=== PATIENT | female | born 1960 | race African-American/Black ===

== ENCOUNTER 2025-05-19 22:21 | Emergency (ER) | payer MEDICARE ==
[~2025-05-19] VITALS: Ht 170.2 cm; Wt 105.0 kg
[~2025-05-19 22:21] MED LIST: ALBU05; ALBUTEROL PO; FLUT1DIS3 IH; LEVO500T2 PO; METF-414 PO; MONT-46 PO; P20 PO; PROAIR; TIOT18CA3 IH
[2025-05-19] MEDS: IPRATROPIUM BROMIDE (0.02%) 0.5MG/2.5ML NEB HHN STA (23:01)
[2025-05-19 23:02] VITALS: PULSE 64; RESP 20; O2SAT 100
[2025-05-19] MEDS: ALBUTEROL (0.083%) 2.5MG/3ML NEB HHN STA (23:02)
[2025-05-20] MEDS: HYDRALAZINE 20MG/ML VIAL IV NR (00:02)
[2025-05-20 00:15] LABS: CHLORIDE 105 mEq/L (98-107); POTASSIUM 3.7 mEq/L (3.5-5.1); SODIUM 141 mEq/L (136-145)
[2025-05-20 00:16] LABS: CALCIUM 9.4 mg/dL (8.7-10.4); CARBON DIOXIDE 27 mEq/L (21-32)
[2025-05-20 00:19] LABS: PARTIAL THROMBOPLASTIN TIME 21.4 sec (23.4-31.0)
[2025-05-20 00:21] LABS: CREATININE 0.8 mg/dL (0.6-1.0); ETHANOL BLOOD < 10 mg/dL (<10); GLUCOSE 190 mg/dL (70-105); UREA NITROGEN BLOOD 15 mg/dL (9-23)
[2025-05-20 00:38] LABS: TROPONIN I HIGH SENSITIVITY < 4 ng/L (3.0-34)
[2025-05-20] MEDS: ACETAMINOPHEN 325MG TABLET PO ONE (01:14)
[2025-05-20] MEDS: ACETAMINOPHEN 325MG TABLET PO NR (01:23)
[2025-05-20 01:40] LABS: HEMATOCRIT. 39.3 % (36.0-48.0); MEAN CORPUSCULAR HEMOGLOBIN 30.9 pg (28.0-32.0); MEAN CORPUSCULAR HGB CONC 33.2 g/dL (31.0-37.0); MEAN CORPUSCULAR VOLUME 93.2 fL (81.0-99.0); MEAN PLATELET VOLUME 8.6 fl (7.4-10.4); PLATELET 204 x1000/uL (130-400); RED BLOOD CELL COUNT 4.21 mill/uL (4.2-5.4); RED CELL DISTRIBUTION WIDTH 13.2 % (11.6-14.6); WHITE BLOOD COUNT 8.2 x1000/uL (4.5-11.0)
[2025-05-20 01:49] LABS: DIFFERENTIAL COMMENT 1
[2025-05-20 02:15] LABS: PLATELET ESTIMATE NORMAL
[2025-05-20 02:18] LABS: *AMPHETAMINES SCREEN URINE NEGATIVE (NEGATIVE); *BARBITURATES SCREEN URINE NEGATIVE (NEGATIVE); *BENZODIAZEPINES SCREEN URINE NEGATIVE (NEGATIVE); *COCAINE SCREEN URINE NEGATIVE (NEGATIVE); CANNABINOID URINE SCREEN NEGATIVE (NEGATIVE); ECSTASY MDMA SCREEN URINE NEGATIVE (NEGATIVE); METHADONE URINE SCREEN NEGATIVE (NEGATIVE); OPIATES URINE SCREEN NEGATIVE (NEGATIVE); PHENCYCLIDINE URINE SCREEN NEGATIVE (NEGATIVE)
[2025-05-20] MEDS ORDERED: ACET-2708 MT (02:18)
[2025-05-20] MEDS ORDERED: ALBU90AE INH (02:18)
[2025-05-20 03:13] VITALS: BP 121/70; PULSE 82; RESP 15; TEMP 36.5; O2SAT 100
== END 2025-05-20 03:30 | disposition home or self-care (01) ==
LOC: ER 22:21
DX: M79.604 Pain in right leg (principal); M79.605 Pain in left leg; R53.1 Weakness; E11.9 Type 2 diabetes mellitus without complications; I10 Essential (primary) hypertension; J44.1 Chronic obstructive pulmonary disease with (acute) exacerbation; Z79.51 Long term (current) use of inhaled steroids; Z79.52 Long term (current) use of systemic steroids; Z79.84 Long term (current) use of oral hypoglycemic drugs; Z79.899 Other long term (current) drug therapy; Z88.0 Allergy status to penicillin
CPT/HCPCS: 36415; 71045; 72131; 80048; 80305; 80320; 83880; 84484; 85025; 93005; 93970; 94640; 99285; G0480